=== PATIENT | female | born 1965 | race American Indian/Alaskan Native ===

== ENCOUNTER 2020-08-26 22:08 | Emergency (ER) | payer MEDICAID ==
[2020-08-27 01:32] LABS: Bilirubin,Urine NEG (Negative); Blood,Urine NEG (Negative); Calcium Oxalate Crystals,Urine 1+; Color,Urine Yellow (Yellow); Hyaline Casts,Urine 1 /LPF; Mucus,Urine 1+ /HPF; Protein,Urine <15 mg/dL mg/dL (Negative); Urobilinogen,Urine < 2.0 mg/dL (<2.0)
[2020-08-27 01:36] LABS: Basophils % (Auto) 0.7 % (0.0-1.8); Eosinophils # (Auto) 0.1 K/mm3 (0.0-0.4); Eosinophils % (Auto) 2.1 % (0.0-4.3); Hematocrit 34.8 % (30.3-42.9); Hemoglobin 11.3 gm/dl (10.1-14.3); Lymphocytes # (Auto) 2.5 K/mm3 (1.2-5.4); Lymphocytes % (Auto) 40.4 % (13.4-35.0); Mean Corpuscular HGB Conc 32 % (30-34); Mean Corpuscular Volume 72 fl (79-97); Monocytes # (Auto) 0.5 K/mm3 (0.0-0.8); Monocytes % (Auto) 8.7 % (0.0-7.3); Platelet Count 338 K/mm3 (140-440); Red Blood Count 4.81 M/mm3 (3.65-5.03); Red Cell Distribution Width 15.5 % (13.2-15.2)
[2020-08-27 01:59] LABS: Alanine Aminotransferase 19 units/L (7-56); Albumin 4.2 g/dL (3.9-5); Blood Urea Nitrogen 10 mg/dL (7-17); Calcium 9.4 mg/dL (8.4-10.2); Hemolysis Index 3
[2020-08-27 02:06] LABS: BUN/Creatinine Ratio 17
--- NOTE | 2020-08-27 04:41 | Emergency Department Report ---
ED Abdominal Pain HPI - General Chief Complaint: Abdominal Pain Stated Complaint: SOMETHING MOVING IN FRONT/SIDE OF STOMACH Source: patient Mode of arrival: Ambulatory Limitations: No Limitations - History of Present Illness Initial Comments: Patient is a 55-year-old -[place] female with no past medical history presents to the ED with complaint of acute onset persistent intermittent right flank discomfort with tightness that radiates to the periumbilical area for the last 1 month, worse in the last 2 days. Patient denies fall, traumatic injury, abdominal pain, diarrhea, nausea and vomiting, change in vision, cough, hematochezia, hematemesis, dysuria, urinary frequency and urgency, vaginal discharge or vaginal bleeding. MD Complaint: abdominal pain, flank pain (Right flank discomfort) -: Gradual, month(s) (1) Location: periumbilical, R flank Radiation: R flank Migration to: periumbilical, R flank Severity: mild Severity scale (0 -10): 1 Quality: dull Consistency: intermittent Worsens With: nothing Associated Symptoms: denies other symptoms. denies: nausea, vomiting, diarrhea, fever, chills, dysuria, hematemesis, melena, hematuria, anorexia, syncope - Related Data Previous Rx's Medication Instructions Recorded Last Taken Type Acetaminophen/Codeine [Tylenol 1 tab PO Q6H PRN #15 tab 03/25/14 Unknown Rx /Codeine # 3 tab] methOCARBAMOL [Robaxin TAB] 750 mg PO Q8H PRN #21 tablet 08/27/20 Unknown Rx Allergies Allergy/AdvReac Type Severity Reaction Status Date / Time aspirin Allergy Hives Verified 03/25/14 13:04 Penicillins Allergy Rash Verified 03/25/14 13:04 pineapple [Pineapple] Allergy Rash Verified 03/25/14 13:04 novacaine Allergy Unknown Uncoded 03/25/14 13:04 ED Review of Systems ROS: Stated complaint: SOMETHING MOVING IN FRONT/SIDE OF STOMACH Other details as noted in HPI Constitutional: denies: chills, fever Eyes: denies: eye pain, eye discharge, vision change ENT: denies: ear pain, throat pain Respiratory: denies: cough, shortness of breath, wheezing Cardiovascular: denies: chest pain, palpitations Endocrine: no symptoms reported Gastrointestinal: abdominal pain (Right flank mild discomfort that radiates to the right periumbilical area). denies: nausea, vomiting, diarrhea, hematochezia Genitourinary: denies: urgency, dysuria, discharge Musculoskeletal: denies: back pain, joint swelling, arthralgia Skin: denies: rash, lesions Neurological: denies: headache, weakness, paresthesias Psychiatric: denies: anxiety, depression Hematological/Lymphatic: denies: easy bleeding, easy bruising ED Past Medical Hx - Past Medical History Previous Medical History?: Yes Additional medical history: low blood pressure - Surgical History Past Surgical History?: Yes Additional Surgical History: tubal ligation - Social History Smoking Status: Never Smoker Substance Use Type: None - Medications Home Medications: Home Medications Medication Instructions Recorded Confirmed Last Taken Type Acetaminophen/Codeine [Tylenol 1 tab PO Q6H PRN #15 tab 03/25/14 Unknown Rx /Codeine # 3 tab] methOCARBAMOL [Robaxin TAB] 750 mg PO Q8H PRN #21 tablet 08/27/20 Unknown Rx ED Physical Exam - General Limitations: No Limitations General appearance: alert, in no apparent distress - Head Head exam: Present: atraumatic, normocephalic, normal inspection - Eye Eye exam: Present: normal appearance, PERRL, EOMI Pupils: Present: normal accommodation - ENT ENT exam: Present: normal exam, normal orophraynx, mucous membranes moist, TM's normal bilaterally, normal external ear exam - Neck Neck exam: Present: normal inspection, full ROM - Respiratory Respiratory exam: Present: normal lung sounds bilaterally. Absent: respiratory distress, wheezes, rales, stridor, chest wall tenderness, decreased breath sounds - Cardiovascular Cardiovascular Exam: Present: regular rate, normal rhythm, normal heart sounds. Absent: systolic murmur, diastolic murmur, rubs, gallop - GI/Abdominal GI/Abdominal exam: Present: soft, normal bowel sounds. Absent: tenderness, guarding, rebound, hyperactive bowel sounds, hypoactive bowel sounds - Extremities Exam Extremities exam: Present: normal inspection, full ROM, normal capillary refill - Back Exam Back exam: Present: normal inspection. Absent: muscle spasm, paraspinal tenderness, vertebral tenderness - Neurological Exam Neurological exam: Present: alert, oriented X3, CN II-XII intact, normal gait, reflexes normal - Psychiatric Psychiatric exam: Present: normal affect, normal mood - Skin Skin exam: Present: warm, dry, intact, normal color. Absent: rash ED Course Vital Signs 08/27/20 00:19 Temperature 98.0 F Pulse Rate 96 H Respiratory 18 Rate Blood Pressure 121/83 O2 Sat by Pulse 96 Oximetry ED Medical Decision Making - Lab Data Result diagrams: 08/27/20 00:53 08/27/20 00:53 - Medical Decision Making This is a 55-year-old -[place] female with no past medical history presents to the ED with complaint of acute onset persistent intermittent right flank discomfort with tightness that radiates to the periumbilical area for the last 1 month, worse in the last 2 days. In the ED, patient is alert and oriented x3 and is not in distress. Lab test results were reviewed and are all nonactionable. Patient was discharged home and advised to follow-up with her primary care physician in 3 to 5 days for reevaluation or return to the ED immediately if symptoms get worse. - Differential Diagnosis muscle spasm; kidney stones; ovarian cyst; Appendicitis; GERD Critical care attestation.: If time is entered above; I have spent that time in minutes in the direct care of this critically ill patient, excluding procedure time. ED Disposition Clinical Impression: Acute abdominal pain in right flank Abdominal muscle strain Qualifiers: Encounter type: initial encounter Qualified Code(s): S39.011A - Strain of muscle, fascia and tendon of abdomen, initial encounter Disposition: - TO HOME OR SELFCARE Is pt being admited?: No Does the pt Need Aspirin: No Condition: Stable Instructions: Abdominal Pain (ED), Flank Pain, Adult, [id number], Muscle Strain Additional Instructions: All lab test results were reviewed and are all nonactionable. Therefore take medications with food, drink plenty of fluids and follow-up with your primary care physician in 5 to 7 days for reevaluation. Return to the ED immediately if symptoms get worse. Prescriptions: methOCARBAMOL [Robaxin TAB] 750 mg PO Q8H PRN #21 tablet PRN Reason: Spasms Referrals: SANTIAGO JAMES MD [Primary Care Provider] - 3-5 Days Time of Disposition: 04:47 Print Language: SERBIAN
[2020-08-27 07:09] VITALS: BP 120/80
== END 2020-08-27 05:21 | disposition home or self-care (01) ==
LOC: ED 22:08
DX: S39.011A Strain of muscle, fascia and tendon of abdomen, initial encounter (principal); R10.33 Periumbilical pain; Z98.51 Tubal ligation status; Z79.899 Other long term (current) drug therapy; Z88.0 Allergy status to penicillin; Z88.6 Allergy status to analgesic agent; Z91.018 Allergy to other foods; X58.XXXA Exposure to other specified factors, initial encounter; Y93.89 Activity, other specified; Y92.89 Other specified places as the place of occurrence of the external cause; Y99.8 Other external cause status
CPT/HCPCS: 36415; 80053; 81001; 84703; 85025

== ENCOUNTER 2021-09-10 15:10 | Emergency (ER) | payer MEDICAID ==
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
[2021-09-10 19:14] VITALS: BP 114/86
== END 2021-09-10 19:20 | disposition home or self-care (01) ==
LOC: ED 15:10
DX: S09.90XA Unspecified injury of head, initial encounter (principal); M79.641 Pain in right hand; M79.642 Pain in left hand; M25.561 Pain in right knee; M25.562 Pain in left knee; Z98.51 Tubal ligation status; Z88.6 Allergy status to analgesic agent; Z88.2 Allergy status to sulfonamides; Z88.0 Allergy status to penicillin; Z88.8 Allergy status to other drugs, medicaments and biological substances
CPT/HCPCS: 70450; 99284